=== PATIENT | female | born 1985 | race Caucasian/White ===

== ENCOUNTER → 2019-05-02 | Outpatient (CLI) | payer BC ==
[~2019-05-02] MED LIST: AMOXICILLIN500 MG PO; CIPRO250 MG PO; DIFLUCAN150 MG PO; PENICILLIN VK500 MG PO; VICODIN 5/500 505 MG PO
== END | disposition home or self-care (01) ==
LOC: RAD 09:15
DX: K59.00 Constipation, unspecified (principal); F41.9 Anxiety disorder, unspecified; R10.9 Unspecified abdominal pain